=== PATIENT | male | born 1955 | race Caucasian/White ===

== ENCOUNTER 2024-03-23 10:17 | Outpatient (REF) | payer MEDICARE, SELFPAY ==
[2024-03-23 14:27] LABS: MANUAL DIFF FLAG NO
[2024-03-23 14:34] LABS: Basophils Percent Auto 0.8 % (0-2); Eosinophils Absolute Auto 0.1 X10*3/uL (0.0-0.4); Eosinophils Percent Auto 1.6 % (0-4); Imm Gran Abs Auto 0.01 X10*3/uL (0.00-0.03); Imm Gran Pct Auto 0.2 % (0.0-0.4); Lymphocytes Absolute Auto 1.2 X10*3/uL (1.2-4.9); Lymphocytes Percent Auto 23.3 % (20-40); Mean Corpuscular HGB Conc 34.8 g/dl (31.0-36.0); Mean Corpuscular Hemoglobin 33.5 pg (27.0-33.0); Mean Corpuscular Volume 96.4 fL (80.0-98.0); Mean Platelet Volume 11.1 fL (9.4-12.4); Monocytes Absolute Auto 0.5 X10*3/uL (0.1-1.2); Neutrophils Absolute Auto 3.2 x10*3/uL (2.0-8.3); Neutrophils Percent Auto 65.1 % (45-73); Platelet Count 174 X10*3/uL (160-400); Red Blood Count 4.77 X10*6/uL (4.60-5.80); Red Cell Distribution Width 12.3 % (11.0-16.0)
[2024-03-23 14:54] LABS: Alanine Aminotransferase 18 U/L (0-40); Alkaline Phosphatase 65 U/L (39-117); Anion Gap 12 (12-20); Aspartate Amino Transferase 18 U/L (5-37); Bilirubin Total 0.6 mg/dL (0.0-1.0); Blood Urea Nitrogen 19 mg/dL (9-16); Carbon Dioxide 25 mmol/L (22-29); Chloride 106 mmol/L (96-108); Cholesterol 211 mg/dL (<200); Estimated Glomerular Filt Rate > 60; Glucose Random 119 mg/dL (60-115); HDL Cholesterol 51 mg/dL (>40); LDL Cholesterol Calculated 124 mg/dL (<100); Potassium 3.5 mmol/L (3.3-5.1); Sodium 139 mmol/L (135-145); Triglycerides 180 mg/dL (<150)
[2024-03-23 15:09] LABS: TSH reflex Free T4 0.64 uIU/mL (0.32-4.0)
[2024-03-23 15:13] LABS: Prostate Specific Antigen 1.33 ng/mL (<0.05-4.0)
[2024-03-23 15:45] LABS: Estimated Average Glucose 100 mg/dL; Hemoglobin A1c % 5.1 % (<6.0)
== END 2024-03-23 10:18 | disposition home or self-care (01) ==
LOC: HO.WFDLDS 10:17
PROVIDERS: Visit Provider Internal Medicine
DX: E78.5 Hyperlipidemia, unspecified (principal); I10 Essential (primary) hypertension; R35.89 Other polyuria; Z13.0 Encounter for screening for diseases of the blood and blood-forming organs and certain disorders involving the immune mechanism; Z12.5 Encounter for screening for malignant neoplasm of prostate
CPT/HCPCS: 36415; 80053; 80061; 83036; 84153; 84443; 85025

== ENCOUNTER 2024-07-20 08:53 | Outpatient (AMB) | payer MEDICARE, SELFPAY ==
--- NOTE | 2024-07-20 09:11 | A.OFFPC_ITS ---
Vital Signs 07/20/24 09:18 Weight 186 lb 6 oz BP 122/60 Blood Pressure Location Rt brachial Position Sitting Respiration 14 Pulse 73 Pulse Source Pulse Oximeter Pulse Oximetry (%) 98 Oxygen Delivery Method Room Air Intake Visit Reasons: NPV Intake Note: New patient visit Allergies No Known Allergies Allergy (Verified 07/20/24 09:14) Tobacco use date assessed: 07/20/24 Fall risk assessment: No Falls in past year Last assessed Fall Risk: 07/20/24 Dental Screening Dental Screen Date: 07/20/24 Did you have a dental visit in the last 12 months?: Yes Did you have a dental problem in the last 6 months where you did not have access to dental care?: No Was dental information given to patient?: Patient has dentist HPI HPI Comments History of Present Illness Details The patient is a 68 year old male with pmh htn, hld, bph, knee pain, IFG presenting for follow up CV: On losartan hctz 100/12.5. Denies chest pain, shortness of breath. Saw cardiology-stress test was normal. May need new referral BPH: on hytrin and proscar-feels interval worsening ini symptoms. Follows with urology-needs new referral. Had previous reassuring w/up for hematuria. Fatigue: +EDWARD. ?cpap MSK: Foot, knee pain. Was seeing [facility]-no longer taking his insurance. Sees [facility] for knee pain-referred for shoulder and fooy there Had colonoscopy 05/2022-repeat 5 year recommended. ROS CONSTITUTIONAL: Denies weight loss, fever and chills. HEENT: Denies changes in vision and hearing. RESPIRATORY: Denies SOB and cough. CV: Denies palpitations and CP GI: Denies abdominal pain, nausea, vomiting and diarrhea. : Denies dysuria and urinary frequency. MSK: Denies new myalgia and joint pain. SKIN: Denies rash and pruritus. NEUROLOGICAL: Denies headache PSYCHIATRIC: Denies recent changes in mood. PHYSICAL EXAM: GENERAL: Alert and oriented x 3. NAD EYES: EOMI. Anicteric. HENT: Moist mucous membranes. No scleral icterus. No cervical lymphadenopathy. LUNGS: Clear to auscultation bilaterally. CARDIOVASCULAR: Regular rate and rhythm. No murmur. No JVD. ABDOMEN: Soft, non-tender +bs EXTREMITIES: No edema. Non-tender. SKIN: No rashes or lesions. Warm. NEUROLOGIC: No focal neurological deficits. CN II-XII grossly intact PSYCHIATRIC: Cooperative. Appropriate mood and affect [facility] Medical History (Updated 07/22/24 @ 09:46 by Nayeli Caro MD) Serrated polyp of colon Persistent cough Recurrent hernia Pain in left foot Pain in right foot Multiple lipomas Obesity, Class II, BMI 35-39.9 Bilateral shoulder pain Fatigue Acquired hallux rigidus Bilateral knee pain Surgical History (Updated 07/20/24 @ 09:29 by Zakia Dominguez [facility]) History of arthroscopic knee surgery Hx of partial adrenalectomy Hx of colonoscopy Family History (Updated 07/20/24 @ 09:31 by Zakia Dominguez CMA) Mother Degeneration of cornea of both eyes Father Prostate cancer Maternal Grandfather H/O ETOH abuse Paternal Grandmother Skin cancer Other Substance abuse Social History (Updated 07/20/24 @ 09:29 by Zakia Dominguez CMA) Housing: House Patient Tobacco Use Status: Never used Tobacco e-Cigarette/Vaping Use: Never Used Second Hand Smoke Exposure: No service: No Current occupational status: retired Cognitive needs: No Hearing needs: Yes (hearing loss) Vision needs: No Questionnaire PHQ-9 Over the last 2 weeks, how often have you been bothered by any of the following problems? 1. Little interest or pleasure in doing things: not at all 2. Feeling down, depressed, or hopeless: not at all 3. Trouble falling or staying asleep, or sleeping too much: not at all 4. Feeling tired or having little energy: several days 5. Poor appetite or overeating: not at all 6. Feeling bad about yourself - or that you are a failure or have let yourself or your family down: not at all 7. Trouble concentrating on things, such as reading the newspaper or watching television: not at all 8. Moving or speaking so slowly that other people could have noticed. Or the opposite - being so fidgety or restless that you have been moving around a lot more than usual: not at all 9. Thoughts that you would be better off or of hurting yourself in some way: not at all Total score: 1 Depression Screening Interpretation: Negative Depression Screening Done: Yes [id number] - PHQ-9 Billing: Yes Source: Developed by Angelo Elliset B.W. Paras, aVrinder Santoro and colleagues, with an educational madeline from [employer]. Thrive Questionnaire Date Thrive assessed: 07/09/24 I am a: Patient What is your living situation today?: I have a steady place to live Within the past 12 months, did the food you bought not last and you didn't have the money to get more?: Never true Within the past 12 months, did you worry whether your food would run out before you got money to buy more?: Never true Do you have trouble paying for medicines?: No Do you have trouble getting transportation to medical appointments?: No Do you have trouble paying your heating and electricity bill?: No Do you have trouble taking care of your child, family member or friend?: No Do you have trouble with day-to-day activities such as bathing, preparing meals, shopping, managing finances, etc.?: No Are you currently unemployed and looking for a job?: No Are you interested in more education?: No Please select the resources that you would like help with: None Currently or been in a relationship where the following occur: No concerns reported THRIVE Score: 0 Physical exam (Primary Care) Vital Signs: Last Vital Signs Pulse 73 07/20/24 09:18 Resp 14 07/20/24 09:18 BP 122/60 07/20/24 09:18 Pulse Ox 98 07/20/24 09:18 Oxygen Delivery Method Room Air 07/20/24 09:18 Tobacco/Smoking Status: Tobacco use Status Tobacco use date assessed 07/20/24 07/20/24 09:13 Patient Tobacco Use Status Never used Tobacco 07/20/24 09:29 e-Cigarette/Vaping Use Never Used 07/20/24 09:29 PHQ-9: PHQ-9 Score PHQ-9: Total score 1 07/22/24 09:46 Depression Screening Interpretation: Negative Thrive Assessment: Date of Thrive Assessment Date Thrive assessed 07/09/24 07/20/24 09:13 Currently or been in a relationship where the following occur: No concerns reported Coding Level of Care Code Est Pt Level 4 (92767) Complex EM visit Add On G2211 Diagnoses Primary hypertension I10 Hypertension type: primary hypertension Mixed hyperlipidemia E78.2 Hyperlipidemia type: mixed hyperlipidemia Osteoarthritis M19.90 Osteoarthritis location: multiple joints Assessment & Plan Assessment & Plan (1) Hypertension: Code(s): I10 - Essential (primary) hypertension Category: Medical Qualifiers: Hypertension type: primary hypertension Qualified Code(s): I10 - Essential (primary) hypertension Plan: adequately controlled on current medication (2) Hyperlipidemia: Code(s): E78.5 - Hyperlipidemia, unspecified Category: Medical Qualifiers: Hyperlipidemia type: mixed hyperlipidemia Qualified Code(s): E78.2 - Mixed hyperlipidemia Plan: continue current medications (3) Osteoarthritis: Code(s): M19.90 - Unspecified osteoarthritis, unspecified site Category: Medical Qualifiers: Osteoarthritis location: multiple joints Plan: stable. Has seen [facility] Orders: Orders Complete Blood Count Auto Diff 07/20/24 E78.5 - Hyperlipidemia, unspecified, I10 - Essential (primary) hypertension, N40.0 - Benign prostatic hyperplasia without lower urinary tract symptoms, R35.1 - Nocturia Comprehensive Met. Panel 07/20/24 E78.5 - Hyperlipidemia, unspecified, I10 - Essential (primary) hypertension, N40.0 - Benign prostatic hyperplasia without lower urinary tract symptoms, R35.1 - Nocturia Lipid Panel 07/20/24 E78.5 - Hyperlipidemia, unspecified, I10 - Essential (primary) hypertension, N40.0 - Benign prostatic hyperplasia without lower urinary tract symptoms, R35.1 - Nocturia Prostate Specific Antigen 07/20/24 E78.5 - Hyperlipidemia, unspecified, I10 - Essential (primary) hypertension, N40.0 - Benign prostatic hyperplasia without lower urinary tract symptoms, R35.1 - Nocturia TSH reflex Free T4 07/20/24 E78.5 - Hyperlipidemia, unspecified, I10 - Essential (primary) hypertension Hemoglobin A1c 07/20/24 E78.5 - Hyperlipidemia, unspecified, I10 - Essential (primary) hypertension Referrals Cardiology Referral R07.9 - Chest pain, unspecified Urology Referral N40.0 - Benign prostatic hyperplasia without lower urinary tract symptoms, R35.1 - Nocturia
[2024-07-20 09:18] VITALS: BP 122/60; PULSE 73; RESP 14; O2SAT 98
== END 2024-07-20 11:53 | disposition home or self-care (01) ==
LOC: HO.HMCFM 08:54
PROVIDERS: PCP Internal Medicine; Visit Provider Internal Medicine
DX: I10 Essential (primary) hypertension (principal); E78.2 Mixed hyperlipidemia; M19.90 Unspecified osteoarthritis, unspecified site

== ENCOUNTER → 2024-07-20 08:53 | Outpatient (BNVA) | payer MEDICARE, SELFPAY | PROVIDERS: PCP Internal Medicine; Visit Provider Internal Medicine | DX: I10 Essential (primary) hypertension (principal); E78.2 Mixed hyperlipidemia; M19.90 Unspecified osteoarthritis, unspecified site | CPT/HCPCS: 99212 ==

== ENCOUNTER 2024-08-13 14:58 | Outpatient (AMB) | payer MEDICARE, SELFPAY ==
--- NOTE | 2024-08-13 15:03 | A.OFFPC_ITS ---
Vital Signs 08/13/24 15:09 Weight 182 lb 8 oz BP 124/76 Blood Pressure Location Lt brachial Position Sitting Pulse 71 Pulse Source Pulse Oximeter Pulse Oximetry (%) 95 Oxygen Delivery Method Room Air Intake Visit Reasons: [facility] tmc /fu Stress test Intake Note: Hospital follow up [employer] Required: No Allergies No Known Allergies Allergy (Verified 08/13/24 15:09) Tobacco use date assessed: 07/20/24 Dental Screening Dental Screen Date: 07/20/24 HPI HPI Comments History of Present Illness Details The patient is a 68 year old male with pmh htn, hld, bph, knee pain, IFG presenting for hospital follow up Patient presented to the [facility] ER on 08/11/2024. Presented with concerns intermittent left chest pain. It had been on and off for the past couple of weeks. Worse at the end of the day, with exertion. Noted intermittent diaphoresis generally at night. His blood pressure was mildly elevated at 165/88. Stress test performed with some abnormal septal movement, no evidence of ischemia. Did have LBBB. Has follow up scheduled with cardiology on Aug 27 CV: On losartan hctz 100/12.5. Started statin and ASA. Continue chronic intermit tent shortness of breath BPH: on hytrin and proscar-feels interval worsening ini symptoms. Follows with urology-needs new referral. Had previous reassuring w/up for hematuria. Fatigue: +EDWARD. ?cpap MSK: Foot, knee pain. Was seeing [facility]-no longer taking his insurance. Sees [facility] for knee pain-referred for shoulder and fooy there Had colonoscopy 05/2022-repeat 5 year recommended. ROS see HPI PHYSICAL EXAM: GENERAL: Alert and oriented x 3. NAD EYES: EOMI. Anicteric. HENT: Moist mucous membranes. No scleral icterus. No cervical lymphadenopathy. LUNGS: Clear to auscultation bilaterally. CARDIOVASCULAR: Regular rate and rhythm. No murmur. No JVD. ABDOMEN: Soft, non-tender +bs EXTREMITIES: No edema. Non-tender. SKIN: No rashes or lesions. Warm. NEUROLOGIC: No focal neurological deficits. CN II-XII grossly intact PSYCHIATRIC: Cooperative. Appropriate mood and affect [facility] Medical History Serrated polyp of colon Persistent cough Recurrent hernia Pain in left foot Pain in right foot Multiple lipomas Obesity, Class II, BMI 35-39.9 Bilateral shoulder pain Fatigue Acquired hallux rigidus Bilateral knee pain Surgical History History of arthroscopic knee surgery Hx of partial adrenalectomy Hx of colonoscopy Family History Mother Degeneration of cornea of both eyes Father Prostate cancer Maternal Grandfather H/O ETOH abuse Paternal Grandmother Skin cancer Other Substance abuse Social History Housing: House Patient Tobacco Use Status: Never used Tobacco e-Cigarette/Vaping Use: Never Used Second Hand Smoke Exposure: No service: No Current occupational status: retired Cognitive needs: No Hearing needs: Yes (hearing loss) Vision needs: No Questionnaire Thrive Questionnaire Date Thrive assessed: 07/09/24 I am a: Patient What is your living situation today?: I have a steady place to live Within the past 12 months, did the food you bought not last and you didn't have the money to get more?: Never true Within the past 12 months, did you worry whether your food would run out before you got money to buy more?: Never true Do you have trouble paying for medicines?: No Do you have trouble getting transportation to medical appointments?: No Do you have trouble paying your heating and electricity bill?: No Do you have trouble taking care of your child, family member or friend?: No Do you have trouble with day-to-day activities such as bathing, preparing meals, shopping, managing finances, etc.?: No Are you currently unemployed and looking for a job?: No Are you interested in more education?: No Please select the resources that you would like help with: None Currently or been in a relationship where the following occur: No concerns reported THRIVE Score: 0 Physical exam (Primary Care) Vital Signs: Last Vital Signs Pulse 71 08/13/24 15:09 BP 124/76 08/13/24 15:09 Pulse Ox 95 08/13/24 15:09 Oxygen Delivery Method Room Air 08/13/24 15:09 Tobacco/Smoking Status: Tobacco use Status Tobacco use date assessed 07/20/24 08/13/24 15:04 Patient Tobacco Use Status Never used Tobacco 08/13/24 15:04 e-Cigarette/Vaping Use Never Used 08/13/24 15:04 Thrive Assessment: Date of Thrive Assessment Date Thrive assessed 07/09/24 08/13/24 15:04 Currently or been in a relationship where the following occur: No concerns reported Coding Level of Care Code TCM Mod MDM <= 14 Days Diagnoses Hospital discharge follow-up Z09 Shortness of breath R06.02 Assessment & Plan Assessment & Plan (1) Hospital discharge follow-up: Code(s): Z09 - Encounter for follow-up examination after completed treatment for conditions other than malignant neoplasm Category: Medical Plan: Hospital discharge follow up Medications reconciled Follow up with cardiology is scheduled (2) Shortness of breath: Code(s): R06.02 - Shortness of breath Category: Medical Plan: referral to pulmonary cardiac follow up in placed Orders: Referrals Pulmonology Referral R06.02 - Shortness of breath, Z09 - Encounter for follow- up examination after completed treatment for conditions other than malignant neoplasm Urology Referral N40.0 - Benign prostatic hyperplasia without lower urinary tract symptoms, R10.30 - Lower abdominal pain, unspecified
[2024-08-13 15:09] VITALS: BP 124/76; PULSE 71; O2SAT 95
== END 2024-08-13 16:39 | disposition home or self-care (01) ==
PROVIDERS: PCP Internal Medicine; Visit Provider Internal Medicine
DX: R06.02 Shortness of breath (principal); Z09 Encounter for follow-up examination after completed treatment for conditions other than malignant neoplasm

== ENCOUNTER → 2024-08-13 14:58 | Outpatient (BNVA) | payer MEDICARE, SELFPAY | PROVIDERS: PCP Internal Medicine; Visit Provider Internal Medicine | DX: Z09 Encounter for follow-up examination after completed treatment for conditions other than malignant neoplasm (principal); R06.02 Shortness of breath | CPT/HCPCS: 99212 ==

== ENCOUNTER 2024-10-18 07:37 | Outpatient (AMB) | payer MEDICARE, SELFPAY ==
--- OUTSIDE RECORDS SUMMARY | 2024-10-18 07:40 | XMS_ITS | Patient Health Record ---
Author Organization [facility] Address [address] [place] [address] Care Team Providers Care Lcac Radar Operator/Navigator Name Role Phone Nayeli Caro Primary Care Provider Unavailabl e Allergies No Known Allergies Reason For Referral No Information Medications Medication SIG (Take, Route, Frequency, Duration) Notes Start Date End Date Status Multivitamin - 1 tablet Orally Once a day Active Finasteride 5 MG 1 tablet Orally Once a day Active Sildenafil Citrate 100 MG 1 tablet as ne eded Orally Once a day Active Terazosin HCl 10 MG 1 capsule at bedtime Orally Once a day Active hydroCHLOROthiazide 25 MG 1 tablet in th e morning Orally Once a day Active Viagra 100 MG 1 tablet as needed Orally Once a day Active Hyzaar 100-12.5 MG 1 tablet Orally Once a day Not-Taking Aspirin 81 81 MG 1 tablet Orally Once a day Active Problems Problem Type SNOMED Code ICD Code Onset Dates Problem Status W/U Status Risk Notes Problem [id number] Hallux rigidus of left foot (M20.22) Active confirmed Problem [id number] Hallux rigidus of right foot (M20.21) Active confirmed Plan Of Treatment Pending Test Test Name Order Date YULISSA w/Reflex if Positive 10/12/2021 DRAIN/INJECT, SMALL JOINT/BURSA 10/12/19 22 Insurance Providers Payer Name Payer Address Payer Phone Subscriber Number Group Number Insured Name Patient Relationship to Insured Coverage Start Date Coverage End Date [facility] [address] [place] [phone] [id number] 1 Keith Navarro Self - patient is the insured Medications Administered Medication Instructions Date of Administration Dosage Notes Dexamethasone 10/12/2021 4 mg Medical (General) History Medical History History ICD Code Multiple joint arthritic changes Hypercholesterolemia Hypertension Erectile dysfunction History of benign adrenal mass Lumbar L5, S1 arthritic changes Surgical History Surgery Date(Month/Year) Arthroscopic knee surgery multiple Resection of benign adrenal mass Skin biopsy Excision of lipoma Hospitalization History Reason Date(Month/Year) Resection of Adrenal mass
--- NOTE | 2024-10-18 08:12 | A.OFFVIS_ITS ---
Intake Visit Reasons: BPH Intake Note: New Patient presents for initial visit for BPH and urinary urgency Urology Medications: finasteride-tadalafil, sildenafil, and terazosin Blood Thinner: aspirin PVR: 14ml's Independent Jeweler Required: No Accompanied by: Self / Same As Patient Allergies No Known Allergies Allergy (Verified 10/18/24 09:03) Medication List - Last Reconciled 10/18/24 by DANY Montero-MORAIMA aspirin 81 mg PO DAILY finasteride-tadalafil 5-5 mg 1 cap PO DAILY hydroxyzine HCl 10 mg PO BEDTIME losartan-hydrochlorothiazide 100-12.5 mg 1 tab PO DAILY multivitamin 1 tab PO DAILY sildenafil 100 mg PO DAILY PRN terazosin 10 mg PO DAILY HPI Comments Details: Keith is a very pleasant 68-year-old male patient of Dr. Nitin Hendrickson. He has a past medical history of hypertension, BPH, obesity, fatigue, recurrent hernias, persistent cough, and multiple lipomas. He presents to the office today as a new patient for ongoing lower urinary tract symptoms he has been experiencing as well as right-sided testicular discomfort he experiences from time to time. In discussion with the patient today he reports previously following up with a urologist at [place] as well as [facility] Dr. Mcgowan. He reports compliance with finasteride and 10 mg of terazosin daily. He reports being on these medications for over 10 years and initially felt they were helpful in episodes of nocturia, urinary urgency, and urinary frequency he had been experiencing. However he feels lately he continues to experience urinary urgency, urinary frequency, and urinary hesitancy. In review of patient's chart it appears PSA 04/14 1.3. He also discusses having had a double hernia repair with Dr. Ochoa a few years ago and has since continue to experience right-sided testicular discomfort as well as intermittent perineal pain. In assessment of the patient today right testicle slightly retracted when compared to left testicle however positive cremaster on exam. Patient with right-sided epididymal head discomfort on palpation otherwise no abnormalities noted within the area. He reports pain/discomfort is noted with increased activity such as chopping wood. He otherwise denies incontinence, hematuria, dysuria, foul smelling urine, changes to urinary stream, flank pain, fever, and or chills. We discussed at length potential causes of scrotal discomfort as well as lower urinary tract symptoms patient was experiencing. We discussed obtaining imaging for further assessment evaluation. We also discussed further treatment options and risks and benefits of these treatment options. In office urinalysis results reviewed with the patient today. PVR 14 mL. He otherwise offers no other issues or concerns at this time. [facility] Medical History Serrated polyp of colon Persistent cough Recurrent hernia Pain in left foot Pain in right foot Multiple lipomas Obesity, Class II, BMI 35-39.9 Bilateral shoulder pain Fatigue Acquired hallux rigidus Bilateral knee pain Surgical History History of arthroscopic knee surgery Hx of partial adrenalectomy Hx of colonoscopy Family History Mother Degeneration of cornea of both eyes Father Prostate cancer Maternal Grandfather H/O ETOH abuse Paternal Grandmother Skin cancer Other Substance abuse Social History Housing: House Patient Tobacco Use Status: Never used Tobacco e-Cigarette/Vaping Use: Never Used Second Hand Smoke Exposure: No service: No Current occupational status: retired Cognitive needs: No Hearing needs: Yes (hearing loss) Vision needs: No Review of Systems Const All systems reviewed & are unremarkable except as noted in HPI and below Physical Exam Const General: cooperative, healthy appearing, comfortable, no acute distress, well developed, alert and awake Orientation/consciousness: patient oriented x3 Limitations: no limitations HEENT Head: Yes normal to inspection, Yes normocephalic and Yes atraumatic Ears: hearing grossly normal bilaterally Eyes General: appearance normal, both eyes and all related structures Neck Neck: Yes normal visual inspection and Yes trachea midline Chest Chest palpation & inspection: normal inspection of the chest Resp Effort & Inspection: normal respiratory effort and able to speak in complete sentences Cardio Rate: regular rate GI Inspection: Yes normal to inspection General: Yes no CVA tenderness Back/Spine/Pelvis Back: no CVA tenderness Skin General skin exam: no rashes or lesions noted Neuro General: patient oriented x3 Extrem General: Yes normal to inspection Psych Appearance: grossly normal and well kempt Mental Status: mental status grossly normal Speech and movement: Normal speech and movement present and Clear speech present Affect: normal affect Attitude: cooperative Thought process: Normal thought process present Thought content: Normal thought content present Insight: Fair insight present (Psych) Judgement: Fair judgement present (Psych) Office Procedures Post Void Residual Post Residual Void Post Void Residual (PVR): 14 06194-[id number] Void Residual by ultrasound Results AMB Urinalysis, Automated UA Leukoctes 0 Tony/uL Last Edit by [employer] on 10/18/24 08:35 UA Nitrite Last Edit by [employer] on 10/18/24 08:35 UA Urobilinogen 0.2 mg/dL Last Edit by [employer] on 10/18/24 08:35 UA Protein 15 mg/dL Last Edit by [employer] on 10/18/24 08:35 UA pH 5.5 Last Edit by [employer] on 10/18/24 08:35 UA Blood 0 Arian/uL Last Edit by [employer] on 10/18/24 08:35 UA Specific [place] 1.020 Last Edit by [employer] on 10/18/24 08:35 UA Ketone Last Edit by [employer] on 10/18/24 08:35 UA Bilirubin 0 mg/dL Last Edit by [employer] on 10/18/24 08:35 UA Glucose 0 mg/dL Last Edit by [employer] on 10/18/24 08:35 Results Reviewed Results Reviewed: Laboratory Last Values Urine pH (Auto) 5.5 10/18/24 08:34 Specific [place] (Auto) 1.020 10/18/24 08:34 Urine Protein (Auto) 15 mg/dL 10/18/24 08:34 Glucose (UA)(Auto) 0 mg/dL 10/18/24 08:34 Urine Blood (Auto) 0 Arian/uL 10/18/24 08:34 Urine Bilirubin (Auto) 0 mg/dL 10/18/24 08:34 Urine Urobilinogen (Auto) 0.2 mg/dL 10/18/24 08:34 Leukocyte Esterase (Auto) 0 Tony/uL 10/18/24 08:34 Assessment & Plan Assessment & Plan (1) Testicular pain: Code(s): N50.819 - Testicular pain, unspecified Category: Medical (2) Urinary urgency: Code(s): R39.15 - Urgency of urination Category: Medical (3) BPH (benign prostatic hyperplasia): Code(s): N40.0 - Benign prostatic hyperplasia without lower urinary tract symptoms Category: Medical Plan In office urinalysis results reviewed with the patient today; as noted above. PVR 14 mL. We discussed at length potential causes of scrotal discomfort as well as lower urinary tract symptoms patient was experiencing. Discussed bladder triggers/irritants. Discussed obtaining retroperitoneal ultrasound and scrotal ultrasound for further assessment evaluation. We discussed at length potential causes of urological issues/concerns as well as further treatment options and risks and benefits of these treatment options. We discussed potential for near future in office cystoscopy for further assessment evaluation. Continue terazosin as well as finasteride however we discussed taking finasteride 3 times per week. Follow-up in 1-3 months with imaging and labs to be completed prior; or sooner with any issues, concerns, and or questions. Orders: Orders AMB Urinalysis Automated Today Z13.9 - Encounter for screening, unspecified US scrotum Today N50.819 - Testicular pain, unspecified AMB Post Void Residual by ultrasound Today N40.0 - Benign prostatic hyperplasia without lower urinary tract symptoms US retroperitoneal comp Today R39.15 - Urgency of urination Prostate Specific Antigen Today N40.0 - Benign prostatic hyperplasia without lower urinary tract symptoms Patient Instructions: The patient had an opportunity to ask questions regarding the treatment plan. All questions were answered. Physical exam, labs, and imaging were discussed and reviewed in detail. As well as risks, benefits, and discussion of treatment choices. No major barriers to understanding were identified. The patient expressed understanding and agreement with the above treatment plan. The patient was made aware they should contact our office by phone for worsening of their current condition, the appearance of new symptoms, or with any questions or concerns. Compliance is encouraged with any medications and follow up testing that is ordered. It is a privilege to be allowed the opportunity to participate in? your urological care.? Again, if you have any questions or concerns If you have any questions or concerns please do not hesitate to contact me. The office is [phone]. This note is constructed using voice recognition software. While every effort has been made to ensure accuracy aircraft life support fitter errors may have been included. Yours sincerely, NORMA Montero Coding Level of Care Code New Pt Level 3 (48657) Diagnoses Testicular pain N50.819 Urinary urgency R39.15 BPH (benign prostatic hyperplasia) N40.0 CPT Codes Post Residual Void - PVR CPT Code: 12042-Cswl Void Residual by ultrasound ([id number])
== END 2024-10-18 09:05 | disposition home or self-care (01) ==
PROVIDERS: PCP Internal Medicine; Visit Provider Nurse Practitioner Family
DX: N50.819 Testicular pain, unspecified (principal); R39.15 Urgency of urination; N40.0 Benign prostatic hyperplasia without lower urinary tract symptoms; Z13.9 Encounter for screening, unspecified
CPT/HCPCS: 99203

== ENCOUNTER → 2024-10-18 07:37 | Outpatient (BNVA) | payer MEDICARE, SELFPAY | PROVIDERS: PCP Internal Medicine; Visit Provider Nurse Practitioner Family | DX: N40.0 Benign prostatic hyperplasia without lower urinary tract symptoms (principal); I10 Essential (primary) hypertension; N50.819 Testicular pain, unspecified; R39.15 Urgency of urination | CPT/HCPCS: 51798; 81003; 99202 ==

== ENCOUNTER 2024-10-25 08:26 | Outpatient (REF) | payer MEDICARE, SELFPAY ==
[2024-10-25 11:30] LABS: MANUAL DIFF FLAG NO
[2024-10-25 11:41] LABS: Basophils Percent Auto 0.7 % (0-2); Eosinophils Absolute Auto 0.1 X10*3/uL (0.0-0.4); Eosinophils Percent Auto 2.3 % (0-4); Hematocrit 43.5 % (42.0-52.0); Hemoglobin 15.3 g/dl (14.0-18.0); Imm Gran Abs Auto 0.02 X10*3/uL (0.00-0.03); Imm Gran Pct Auto 0.4 % (0.0-0.4); Lymphocytes Absolute Auto 1.2 X10*3/uL (1.2-4.9); Lymphocytes Percent Auto 22.1 % (20-40); Mean Corpuscular HGB Conc 35.2 g/dl (31.0-36.0); Mean Corpuscular Hemoglobin 32.9 pg (27.0-33.0); Mean Corpuscular Volume 93.5 fL (80.0-98.0); Mean Platelet Volume 11.1 fL (9.4-12.4); Monocytes Absolute Auto 0.4 X10*3/uL (0.1-1.2); Neutrophils Absolute Auto 3.8 x10*3/uL (2.0-8.3); Neutrophils Percent Auto 67.5 % (45-73); Platelet Count 189 X10*3/uL (160-400); Red Blood Count 4.65 X10*6/uL (4.60-5.80); Red Cell Distribution Width 12.2 % (11.0-16.0); White Blood Count 5.6 X10*3/uL (4.8-10.8)
[2024-10-25 12:06] LABS: Estimated Average Glucose 100 mg/dL; Hemoglobin A1C 130.4939 umol/L; Hemoglobin A1c % 5.1 % (<6.0); Total Hemoglobin (HGBA1C) 4020.6373 umol/L
[2024-10-25 12:22] LABS: Alanine Aminotransferase 25 U/L (0-40); Albumin Level 3.9 g/dL (3.5-5.0); Alkaline Phosphatase 62 U/L (39-117); Anion Gap 11 (12-20); Aspartate Amino Transferase 22 U/L (5-37); Bilirubin Total 0.7 mg/dL (0.0-1.0); Blood Urea Nitrogen 17 mg/dL (9-16); Calcium 8.8 mg/dL (8.4-10.2); Carbon Dioxide 27 mmol/L (22-29); Chloride 107 mmol/L (96-108); Cholesterol 226 mg/dL (<200); Estimated Glomerular Filt Rate > 60; Glucose Random 107 mg/dL (60-115); HDL Cholesterol 49 mg/dL (>40); LDL Cholesterol Calculated 151 mg/dL (<100); Potassium 3.5 mmol/L (3.3-5.1); Sodium 141 mmol/L (135-145); Total Protein 6.9 g/dL (6.5-8.0); Triglycerides 131 mg/dL (<150)
[2024-10-25 12:31] LABS: Prostate Specific Antigen 0.83 ng/mL (<0.05-4.0)
[2024-10-25 12:40] LABS: TSH reflex Free T4 1.07 uIU/mL (0.32-4.0)
== END 2024-10-25 08:27 | disposition home or self-care (01) ==
LOC: HO.WFDLDS 08:26
PROVIDERS: Referring Provider Nurse Practitioner Family; Visit Provider Internal Medicine
DX: N40.0 Benign prostatic hyperplasia without lower urinary tract symptoms (principal); R35.1 Nocturia; I10 Essential (primary) hypertension; E78.5 Hyperlipidemia, unspecified; Z12.5 Encounter for screening for malignant neoplasm of prostate; Z13.1 Encounter for screening for diabetes mellitus
CPT/HCPCS: 36415; 80053; 80061; 83036; 84153; 84443; 85025

== ENCOUNTER 2024-11-26 14:32 | Outpatient (REF) | payer MEDICARE, SELFPAY ==
--- NOTE | ~2024-11-26 | US_ITS ---
CLINICAL HISTORY: N50.819 - Testicular pain, unspecified US SCROTUM WITH DOPPLER Comparison: None Findings: Right testicle measures 4.9 x 2.2 x 3.6 cm. Homogeneous echotexture with no measurable mass lesion. There are several tunica albuginea cysts measuring 3 mm. Left testicle measures 4.5 x 1.8 x 3.5 cm. Homogeneous echotexture with no measurable mass lesion. There are several microliths. Normal color flow and arterial/venous spectral tracing of both testicles. The right testicular appendix measures 4 x 6 x 4 mm. Left testicular appendix measures 7 x 4 x 7 mm. 7 x 5 x 5 mm right epididymal head cyst otherwise unremarkable epididymides. Large left-sided varicoceles. Trace physiologic bilateral hydroceles. IMPRESSION: 1. No acute testicular torsion. 2. No evidence for acute epididymo-orchitis. 3. Large left-sided varicoceles. 4. Small right epididymal head cyst. 5. No suspicious mass or abnormal fluid collection. This document has been electronically signed by: Jennifer Vasquez DO on 11/29/2024 13:14:52
--- NOTE | ~2024-11-26 | US_ITS ---
CLINICAL HISTORY: R39.15 - Urgency of urination US RENAL Comparison: None Findings: The right kidney measures 10.1 cm in length. No hydronephrosis or large shadowing calculus. There are multiple cysts, largest 3.6 cm. The left kidney measures 10.8 cm in length. No hydronephrosis or large shadowing calculus. There are multiple cysts, largest 1.6 cm. Urinary bladder is unremarkable. Prevoid volume 273 mL. Postvoid volume 147 mL. Bilateral ureteral jets are visualized. The prostate is heterogeneous and irregular in configuration measuring 3.5 x 3.7 x 3.5 cm. IMPRESSION: 1. No hydronephrosis. 2. Multiple bilateral renal cysts. 3. Approximately 46% postvoid residual. 4. Irregular heterogeneous prostate with volume in the normal range. This document has been electronically signed by: Jennifer Vasquez DO on 11/29/2024 13:29:32
--- OUTSIDE RECORDS SUMMARY | 2024-11-26 16:13 | XMS_ITS | Patient Health Record ---
Author Organization [facility] Address [address] [place] [address] Care Team Providers Care Assembler Hydraulic Backhoe Name Role Phone Nayeli Caro Primary Care [...] Problem Status W/U Status Risk Notes Problem [id number] Hallux rigidus of left foot (M20.22) Active confirmed Problem [id number] Hallux rigidus of right foot (M20.21) Active confirmed Plan Of Treatment Pending Test Test Name Order Date YULISSA w/Reflex if Positive 10/12/2021 DRAIN/INJECT, SMALL JOINT/BURSA 10/12/19 22 Insurance Providers Payer Name Payer Address Payer Phone Subscriber Number Group Number Insured Name Patient Relationship to Insured Coverage Start Date Coverage End Date [facility] [address] [place] [address] [phone] [id number] Keith Navarro Self - patient is [...]
== END 2024-11-26 14:33 | disposition home or self-care (01) ==
LOC: HO.US 14:32
PROVIDERS: PCP Internal Medicine; Visit Provider Nurse Practitioner Family
DX: R39.15 Urgency of urination (principal); N50.819 Testicular pain, unspecified
CPT/HCPCS: 76770; 76870

== ENCOUNTER → 2024-11-26 14:35 | Outpatient (BNV) | payer MEDICARE, SELFPAY | PROVIDERS: PCP Internal Medicine; Visit Provider Radiology Diagnostic Radiology | DX: N50.3 Cyst of epididymis (principal); N28.1 Cyst of kidney, acquired | CPT/HCPCS: 76770; 76870 ==

== ENCOUNTER 2025-01-24 07:44 | Outpatient (AMB) | payer MEDICARE, SELFPAY ==
--- NOTE | 2025-01-24 07:46 | A.OFFVIS_ITS ---
Intake Visit Reasons: 3m/US(set) Intake Note: Patient presents today for follow up on: BPH, urinary urgency, and testicular pain Urology Medications: terazosin, finasteride (not currently taking needs refills) Blood Thinner: aspirin PVR: 0ml's Net Sorter Required: No Accompanied by: Self / Same As Patient Allergies No Known Allergies Allergy (Verified 01/24/25 21:09) Medication List - Last Reconciled 01/24/25 by DANY Montero- aspirin 81 mg PO DAILY finasteride 5 mg PO DAILY hydroxyzine HCl 10 mg PO BEDTIME 90 days losartan-hydrochlorothiazide 100-12.5 mg 1 tab PO DAILY multivitamin 1 tab PO DAILY terazosin 10 mg PO DAILY 90 days HPI Comments Details: Keith is a very pleasant 69-year-old male patient of Dr. Jian Hendrickson. He has a past medical history of hypertension, BPH, obesity, fatigue, recurrent hernias, persistent cough, and multiple lipomas. He presents to the office today for follow-up of his ongoing lower urinary tract symptoms as well as intermittent scrotal discomfort he experiences. Patient with a previous history of following up at [facility] with . He denies having had any bothersome testicular or scrotal discomfort since his last office visit here. He reports compliance with finasteride and terazosin as ordered. Recent retroperitoneal ultrasound results reviewed with the patient today 12/14 bilat eral kidneys are normal in size. No hydronephrosis or renal calculi noted bilaterally. There are multiple bilateral renal cysts. Largest on the right 3.6 cm in largest on the left 1.6 cm. The urinary bladder is unremarkable. Irregular heterogeneous prostate with volume in normal range. Scrotal ultrasound 12/14 notes bilateral testicles with no acute testicular torsion. No evidence of acute epididymo-orchitis. Large left sided varicoceles. Small right epididymal head cysts. No suspicious masses or abnormal fluid collection per radiology report. He currently denies any bothersome urinary issues. He denies incontinence, hematuria, dysuria, foul smelling urine, changes to urinary stream, flank pain, fever, and or chills. In office urinalysis results reviewed with the patient today. PVR 0 mL. PSAs are as follows: PSA: 04/14 1.3, 11/16 0.8 He discusses [place]. We discussed continuation of surveillance monitoring. He otherwise offers no other issues or concerns at this time. [facility] Medical History Serrated polyp of colon Persistent cough Recurrent hernia Pain in left foot Pain in right foot Multiple lipomas Obesity, Class II, BMI 35-39.9 Bilateral shoulder pain Fatigue Acquired hallux rigidus Bilateral knee pain Surgical History History of arthroscopic knee surgery Hx of partial adrenalectomy Hx of colonoscopy Family History Mother Degeneration of cornea of both eyes Father Prostate cancer Maternal Grandfather H/O ETOH abuse Paternal Grandmother Skin cancer Other Substance abuse Social History Housing: House Alcohol intake: current Patient Tobacco Use Status: Never used Tobacco e-Cigarette/Vaping Use: Never Used Second Hand Smoke Exposure: No Substance Use Type: Marijuana service: No Current occupational status: retired Cognitive needs: No Hearing needs: Yes (hearing loss) Vision needs: No Review of Systems Const All systems reviewed & are unremarkable except as noted in HPI and below Physical Exam Const General: cooperative, healthy appearing, comfortable, no acute distress, well developed, alert and awake Orientation/consciousness: patient oriented x3 Limitations: no limitations HEENT Head: Yes normal to inspection, Yes normocephalic and Yes atraumatic Ears: hearing grossly normal bilaterally Eyes General: appearance normal, both eyes and all related structures Neck Neck: Yes normal visual inspection and Yes trachea midline Chest Chest palpation & inspection: normal inspection of the chest Resp Effort & Inspection: normal respiratory effort and able to speak in complete sentences Cardio Rate: regular rate GI Inspection: Yes normal to inspection General: Yes no CVA tenderness Back/Spine/Pelvis Back: no CVA tenderness Skin General skin exam: no rashes or lesions noted Neuro General: patient oriented x3 Extrem General: Yes normal to inspection Psych Appearance: grossly normal and well kempt Mental Status: mental status grossly normal Speech and movement: Normal speech and movement present and Clear speech present Affect: normal affect Attitude: cooperative Thought process: Normal thought process present Thought content: Normal thought content present Insight: Fair insight present (Psych) Judgement: Fair judgement present (Psych) Office Procedures Post Void Residual Post Residual Void Post Void Residual (PVR): 0 63061-Baax Void Residual by ultrasound Results AMB Urinalysis, Automated UA Leukoctes 0 Tony/uL Last Edit by [employer] on 01/24/25 08:07 UA Nitrite Last Edit by Tradeshiftaysha Or[employer] on 01/24/25 08:07 UA Urobilinogen 0.2 mg/dL Last Edit by [employer] on 01/24/25 08:07 UA Protein 0 mg/dL Last Edit by [employer] on 01/24/25 08:07 UA pH 6.0 Last Edit by Tradeshiftaysha OrantesCine[employer] on 01/24/25 08:07 UA Blood 0 Arian/uL Last Edit by [employer] on 01/24/25 08:07 UA Specific Fleming 1.030 Last Edit by [employer] on 01/24/25 08:07 UA Ketone Last Edit by [employer] on 01/24/25 08:07 UA Bilirubin 0 mg/dL Last Edit by [employer] on 01/24/25 08:07 UA Glucose 0 mg/dL Last Edit by [employer] on 01/24/25 08:07 Results Reviewed Results Reviewed: Laboratory Last Values Urine pH (Auto) 6.0 01/24/25 07:54 Specific Fleming (Auto) 1.030 01/24/25 07:54 Urine Protein (Auto) 0 mg/dL 01/24/25 07:54 Glucose (UA)(Auto) 0 mg/dL 01/24/25 07:54 Urine Blood (Auto) 0 Arian/uL 01/24/25 07:54 Urine Bilirubin (Auto) 0 mg/dL 01/24/25 07:54 Urine Urobilinogen (Auto) 0.2 mg/dL 01/24/25 07:54 Leukocyte Esterase (Auto) 0 Tony/uL 01/24/25 07:54 Date of Service: 11/26/24 Procedure(s): US retroperitoneal comp Findings: The right kidney measures 10.1 cm in length. No hydronephrosis or large shadowing calculus. There are multiple cysts, largest 3.6 cm. The left kidney measures 10.8 cm in length. No hydronephrosis or large shadowing calculus. There are multiple cysts, largest 1.6 cm. Urinary bladder is unremarkable. Prevoid volume 273 mL. Postvoid volume 147 mL. Bilateral ureteral jets are visualized. The prostate is heterogeneous and irregular in configuration measuring 3.5 x 3.7 x 3.5 cm. IMPRESSION: 1. No hydronephrosis. 2. Multiple bilateral renal cysts. 3. Approximately 46% postvoid residual. 4. Irregular heterogeneous prostate with volume in the normal range. Date of Service: 11/26/24 Procedure(s): US scrotum Findings: Right testicle measures 4.9 x 2.2 x 3.6 cm. Homogeneous echotexture with no measurable mass lesion. There are several tunica albuginea cysts measuring 3 mm. Left testicle measures 4.5 x 1.8 x 3.5 cm. Homogeneous echotexture with no measurable mass lesion. There are several microliths. Normal color flow and arterial/venous spectral tracing of both testicles. The right testicular appendix measures 4 x 6 x 4 mm. Left testicular appendix measures 7 x 4 x 7 mm. 7 x 5 x 5 mm right epididymal head cyst otherwise unremarkable epididymides. Large left-sided varicoceles. Trace physiologic bilateral hydroceles. IMPRESSION: 1. No acute testicular torsion. 2. No evidence for acute epididymo-orchitis. 3. Large left-sided varicoceles. 4. Small right epididymal head cyst. 5. No suspicious mass or abnormal fluid collection. Assessment & Plan Assessment & Plan (1) Epididymal cyst: Code(s): N50.3 - Cyst of epididymis Category: Medical (2) Varicocele: Code(s): I86.1 - Scrotal varices Category: Medical (3) Renal cyst: Code(s): N28.1 - Cyst of kidney, acquired Category: Medical (4) BPH (benign prostatic hyperplasia): Code(s): N40.0 - Benign prostatic hyperplasia without lower urinary tract symptoms Category: Medical Qualifiers: Lower urinary tract symptom presence: symptoms present Lower urinary tract symptom detail: unspecified Qualified Code(s): N40.1 - Benign prostatic hyperplasia with lower urinary tract symptoms Plan In office urinalysis results reviewed with the patient today; as noted above. PVR 0 mL. Continue finasteride Friday and terazosin as prescribed. Recent retroperitoneal ultrasound and scrotal ultrasound results reviewed with the patient today; as noted above. Recent PSA results reviewed with the patient today We discussed potential causes of varicoceles, epididymal cyst, and renal cysts; we discussed further interventions and risks and benefits of these interventions. All questions were answered Patient currently denies any bothersome urinary issues or concerns. He reports be happy with current voiding parameters. Will continue with surveillance monitoring. Will obtain renal ultrasound in 1 year Follow-up in 1 year with PSA and PVR; or sooner with any issues, concerns, and or questions. Orders: Orders AMB Urinalysis Automated Today Z13.9 - Encounter for screening, unspecified AMB Post Void Residual by ultrasound Today R39.15 - Urgency of urination US renal BI 1 Year N20.0 - Calculus of kidney Prostate Specific Antigen 1 Year N40.0 - Benign prostatic hyperplasia without lower urinary tract symptoms Patient Instructions: The patient had an opportunity to ask questions regarding the treatment plan. All questions were answered. Physical exam, labs, and imaging were discussed and reviewed in detail. As well as risks, benefits, and discussion of treatment choices. No major barriers to understanding were identified. The patient expressed understanding and agreement with the above treatment plan. The patient was made aware they should contact our office by phone for worsening of their current condition, the appearance of new symptoms, or with any questions or concerns. Compliance is encouraged with any medications and follow up testing that is ordered. It is a privilege to be allowed the opportunity to participate in? your urological care.? Again, if you have any questions or concerns If you have any questions or concerns please do not hesitate to contact me. The office is [phone]. This note is constructed using voice recognition software. While every effort has been made to ensure accuracy jowl trimmer errors may have been included. Yours sincerely, DANY Montero-MORAIMA Coding Level of Care Code Est Pt Level 3 (23746) Complex EM visit Add On G2211 Diagnoses Epididymal cyst N50.3 Varicocele I86.1 Renal cyst N28.1 Benign prostatic hyperplasia with lower urinary tract symptoms, symptom details unspecified N40.1 Lower urinary tract symptom presence: symptoms present Lower urinary tract symptom detail: unspecified CPT Codes Post Residual Void - PVR CPT Code: 63342-Slik Void Residual by ultrasound ([id number])
--- OUTSIDE RECORDS SUMMARY | 2025-01-24 07:47 | XMS_ITS | Data Portability ---
Author Organization [facility], [facility] Address [address] [place] [address] Care Team Providers Care Supervisor Stripping Name Role Phone SARA ALVAREZ Primary Care Provider [phone] Assessment Encounter Date Assessment Date Assessment LastModified by Organization Details LastModified Time 06/10/2024 06/10/2024 Chief Complaint: Bilateral shoulder subacromial impingement/bursiti s, bilateral shoulder osteoarthritis HPI: The patient is a 68-year-old otherwise healthy retired right-hand dominant male here today in follow-up regarding bilateral shoulder pain, left greater than right. He complains of greater than 10 years of episodic pain to both shoulders. He denies any injury or trauma. He complains of gradual onset aching pain. He had a cortisone injection performed back in 2009 which did help his symptoms. No prior shoulder surgeries. He also has nighttime symptoms. His pain better while lifting and reaching activity was to make his pain worse. I previously evaluated him on 08/30/2022. His history and exam are most consistent with bilateral shoulder subacromial impingement/bursiti s and I performed subacromial steroid injections to both shoulders with significant improvement in symptoms. I saw him again in February 2023 and November 2023 for both shoulders with repeat injections performed similarly with good relief of symptoms. He also had an MRI of the left shoulder performed back in November 2023. He comes in today for reevaluation and discussion of treatment options. I independently reviewed the outside MRI of the left shoulder dated 11/24/2023. Supraspinatus and infraspinatus tendons intact with some insertional tendinosis of the supraspinatus. Moderate acromioclavicular joint arthrosis with acromial and clavicular spurring as well as cystic change and adjacent marrow edema. Degenerative tearing of the superior labrum. Diffuse chondral thinning in the glenohumeral joint including near full thickness chondral loss to the glenoid. Degenerative tearing of the anterior and posterior labrum noted. Flattening of the biceps tendon along with intrasubstance signal consistent with tendinopathy. Subscapularis intact with tendinosis noted. Teres minor intact. I reviewed previous Grashey, scapular outlet and axillary views of the bilateral shoulders were ordered, obtained and reviewed at [facility] from November 2023. No acute fractures or dislocations. Moderate glenohumeral joint space narrowing noted bilaterally, right worse than left. Slightly high riding humeral head on the left with concern for possible chronic rotator cuff tear pathology. Mild to moderate acromioclavicular joint arthrosis noted bilaterally. Type II acromion bilaterally. No os acromiale. He has a past medical history of hypertension. He takes losartan, hydrochlorothiazide , Terazosin, finasteride and baby aspirin. He has no allergies to medications. He denies tobacco use. He is and employed. No personal or family history of blood clots. Past medical, surgical, family and social history, and 12-point review of systems has been reviewed, updated and signed by me and are in the patient? s chart. Physical Examination: Height and weight as noted in chart. Constitutional: Patient pleasant, well appearing and in NAD. Mental status: Patient is alert and oriented to person, place and time. No short-term memory deficits. Psychiatric: Mood and affect are appropriate. Head: Normocephalic and atraumatic. Exterior inspection of the ears and nose was unremarkable. Hearing grossly intact. Eyes: Sclera are not blue. director housekeeping II-XII are grossly intact. Full extraocular motion. Neck: Supple with pain-free, appropriate ROM. No tracheal deviation. No obvious JVD. Respiratory: Non-labored breathing. Symmetric excursion. No audible wheezing or crackles. Skin: No rashes, lesions, wounds to the upper extremities. Normal turgor and coloration. Musculoskeletal: On examination of the bilateral shoulders, there are no effusions, erythema or ecchymosis. Active shoulder elevation to 165? ? ? bilaterally. External rotation 45? ? ? bilaterally. Internal rotation to the thoracolumbar junction. Negative belly press bilaterally. 5/5 strength in rotator cuff testing including abduction and external rotation. Positive impingement signs of both shoulders. No significant acromioclavicular joint tenderness. Positive biceps tenderness bilaterally. Procedure: Injection of Steroid and Anesthetic, Subacromial Space, right All reasonable risks and benefits of injection were discussed. Risks include bleeding, infection, non-relief of symptoms, recurrence of symptoms, allergic type reaction, scarring, fat atrophy, and hyperglycemia. After obtaining consent, the right posterior shoulder was prepped in sterile fashion using an alcohol swab. The skin was anesthetized with ethyl chloride spray, wiped again with alcohol, and an injection of 1cc of Kenalog 40 and 4cc? s of Lidocaine 1% was performed using a 22-gauge needle into the subacromial space. The medication flowed freely and the patient tolerated this procedure well. The patient was instructed to avoid strenuous activity following the injection for approximately 24 to 48 hours, and then a gradual return to normal activities is allowed. Procedure: Injection of Steroid and Anesthetic, Subacromial Space, left All reasonable risks and benefits of injection were discussed. Risks include bleeding, infection, non-relief of symptoms, recurrence of symptoms, allergic type reaction, scarring, fat atrophy, and hyperglycemia. After obtaining consent, the left posterior shoulder was prepped in sterile fashion using an alcohol swab. The skin was anesthetized with ethyl chloride spray, wiped again with alcohol, and an injection of 1cc of Kenalog 40 and 4cc? s of Lidocaine 1% was performed using a 22-gauge needle into the subacromial space. The medication flowed freely and the patient tolerated this procedure well. The patient was instructed to avoid strenuous activity following the injection for approximately 24 to 48 hours, and then a gradual return to normal activities is allowed. Impression and Plan: 68-year-old otherwise healthy male with a long-term history of recurrent bilateral shoulder pain and overall history, x-rays and examination consistent with symptomatic left shoulder subacromial impingement/bursiti s and biceps tendinopathy, bilateral shoulder osteoarthritis, and rotator cuff tendinosis. No full-thickness rotator cuff tear based on the left shoulder MRI from November 2023. I discussed options with him both operative and nonoperative. He does wish to continue conservative treatment and therefore I offered him repeat course of injections to both shoulders today that he tolerated very well. He may continue taking Tylenol and low-dose oral anti-inflammatory as needed. I previously provided a handout with home stretches and exercises and recommendations to perform these on a daily basis. I also recommended good lifting mechanics and avoidance of heavy overhead lifting or lifting away from his body when possible. Should he wish to discuss further treatment options in the future, I do recommend that he call back for another visit when convenient for him. All questions and concerns were addressed. Today's visit involved examining the patient, reviewing the history, reviewing the radiographic studies, counseling the patient regarding treatment options, and the administrative tasks including placing orders, preparing patient information and home handouts and preparing the visit note. This note was generated with [facility] speech recognition railroad conductor dictation software. Please excuse any errors that may have been overlooked during review of this note. Sometimes, these errors may affect the content or meaning of a given sentence. Please call for corrections. [email or web address] Not available 06/10/2024 12:49:34 Plan of Treatment Reminders Order Date Submit Date Provider Last Modified By Organization Details Last Modified Time Details Appointments NEW PROBLEM 2024 08:45A Chuck Frederick CNP Not available Not available Not available Lab None recorded . Referral None recorded . Procedures None recorded . Surgeries None recorded . Imaging None recorded . Medication Orders None recorded . Patient TargetsNo targets recorded. Patient InstructionsNo instructions recorded. Reason for Referral None Reported. Procedures Surgical History Date Name Laterality Status Provider Name and Address Organization Details Recorded Time 5 Knee Kenalog 40 1cc Injection, Bilateral completed Brigido Mock PA-C [address], [place], [address], [facility] 11/30/2024 16:33:49 4 Sports Shoulder Bilateral completed Azar Langston MD [address], [place], [address], [facility] 06/10/2024 12:49:43 4 Knee Kenalog 40 1cc Injection, Bilateral completed Brigido Mock PA-C [address], [place], [address], [facility] 06/05/2024 09:59:24 Imaging Results None recorded. Procedure Notes None recorded. Medical Equipment None Reported. Medications Name Sig Start Date Stop Date Status Note LastModified by Organization Details LastModified Time atorvastatin 40 mg tablet TAKE 1 TABLET BY MOUTH DAILY active Not Available Not Available No t Available sildenafil 100 mg tablet TAKE 1 TABLET BY MOUTH DAILY NEEDED 30 MINUTES TO 4 HOURS BEFORE SEXUAL ACTIVITY active Not Available Not Available No t Available ropinirole 0.25 mg tablet active Not Available Not Availab le Not Available pseudoephedrin e-guaifenesin ER 80-700 mg tablet,extende d release 1 PO Q4-6 HRS PRN PAIN 2006 active Statu s: 'Curr ent'; Not Available Not Available Not Available hydroxyzine HCl 10 mg tablet TAKE 1 TABLET AT BEDTIME ASNEEDED FOR ANXIETY/S LEEP active Not Available Not Available No t Available terazosin 10 mg capsule TAKE 1 CAPSULE DAILY active Not Available Not Available No t Available finasteride 5 mg tablet TAKE 1 TABLET DAILY active Not Available Not Available No t Available rosuvastatin 5 mg tablet TAKE 1 TABLET BY MOUTH DAILY active Not Available Not Available No t Available Vitals Date Recorded Body height Provider Name an d Address Organization Details Last Updated DateTime 06/05/2024 170.18 cm IDALIA DAVE [facility] 06/05/2024 08:26:58 Date Recorded Body height Body mass index (BMI) Body weight Provider Name and Address Organization Details Last Updated DateTime 06/10/2024 170.18 cm 29 kg/m2 50804.59 g Sienna Perales [facility] 06/10/2024 11:51:11 Date Recorded Body height Body mass index (BMI) Body weight Provider Name and Address Organization Details Last Updated DateTime 11/30/2024 170.18 cm 29 kg/m2 85350.59 g Brigido Mock PA-C [address], [place], [address], [facility] 11/30/2024 16:08:30 Social History None recorded. Functional Status None recorded. Mental Status None recorded. Family History Nothing Reported. Medical History Condition Response Cholesterol Y Past Encounters Encounter ID Performer Location Encounter Start Date Encounter Closed Date Diagnosis/Indication Diagnosis SNOMED-CT Code Diagnosis ICD10 Code Diagnosis Note [id number] CARIN Hager [address] [place] [address] 06/05/2024 08:13:28 06/28/2024 08:28:47 Bilateral osteoarthritis of knees 3218057441 06471 M17.0 [id number] MD [facility] [address] [place] [address] 06/10/2024 11:04:36 06/30/2024 12:13:02 Impingement syndrome of right shoulder region 7101184929 26252 M75.41 Impingemen t syndrome of left shoulder region 5540326155 16752 M75.42 [id number] [facility] [place] [address] [place] [address] 11/30/2024 16:01:19 12/16/2024 15:29:27 Primary gonarthrosis, bilateral 796496281 M17.0 Health Concerns Section Related Observation LastModified by Organization Detai ls LastModified Time None Recorded Concern Status LastModified by Organization Details LastModified Time None Recorded Advance Directives Directive None Recorded Payers Encounter Date Sequence Insurance Name Policy Number Policy Earl Covered Member ID Earl Member ID Guarantor Name 06/05/2024 1 [place] [employer] Keith Verdin [place] [id number] Keith Verdin [place] 06/05/2024 1 [place] [facility] [id number] Keith Verdin [place] [id number] Keith Verdin [place] 06/10/2024 1 [place] [employer] Keith Verdin [place] [id number] Keith S Ramon 06/10/2024 2 [place] [id number] Keith Verdin [place] [id number] Keith Verdin [place] 11/30/2024 1 [place] [employer] Keith Verdin [place] [id number] Keith S [place] 11/30/2024 2 [place] [id number] Keith S [place] [id number] Keith S Ramon Notes Date Note Type Note Provider Name and Address Organization Details Recorded Time 06/05/2024 text/html I am seeing the patient today under the supervision of Dr. Canales who was available but who did not see the patient. HPI:Patient presents today follow-up regarding their {{Left Right Bi-later al*}} knee. They have had difficulty up and down stairs sitting standing. Patient had previous cortisone injections approximately every 7 months ago. He had these injections done before he was going on vacation. These injections provided him with good relief up until recently. Problems ambulating. Jsrn-cnw-qjorpoq medications are helping somewhat but not significantly. Pain is not constant and comes and goes depending on his activity level. He would like to proceed with continued injection treatment at this point. Past family, medical, social history and review of systems has been reviewed, updated and is located in the patient? s chart. Examination:The patient is well appearing and in no apparent distress. Alert and oriented x3. Gait is symmetric. Examination of the {{Left Right Bi-later al*}} knee reveals no evidence of any edema, erythema, or warmth. No Deformity. Range of motion of the knee limited with mild discomfort at the end ranges. No effusion. Does have some tenderness to palpation about the medial hemijoint line. No tenderness to palpation about the lateral hemijoint line. Patellofemoral crepitus is noted. mild lateral ligamentous laxity. Negative Cecilia? s . Calf is supple and nontender. Neurovascularly intact distally. Impression:{{Left Rig ht Bi-lateral*}} Knee osteoarthritis Plan:We discussed the role of conservative management including medications, physical therapy, injection and bracing. At this point the patient was to proceed with injection. Please see procedure note. They will follow up with us as scheduled. Brigido Mock PA-C [address], [place], [address], [facility] 06/05/2024 09:59:39 11/30/2024 text/html I am seeing the patient today under the supervision of Dr. Pozo who was available but who did not see the patient. HPI:Patient presents today follow-up regarding their {{Left Right Bi-later al*}} knee. They have had difficulty up and down stairs sitting standing. Previous injections about 6-1/2 months ago which gave him good relief for about 5-1/2 months. Problems ambulating. Hzyw-aom-mcbwuct medications are helping somewhat but not significantly. Pain is constant aching sometimes sharp pain with giving out sensations. Past family, medical, social history and review of systems has been reviewed, updated and is located in the patient? s chart. Examination:The patient is well appearing and in no apparent distress. Alert and oriented x3. Gait is symmetric. Examination of the {{Left Right Bi-later al*}} knee reveals no evidence of any edema, erythema, or warmth. No Deformity. Range of motion of the knee limited with mild discomfort at the end ranges. Minimal effusion. Does have some tenderness to palpation about the medial hemijoint line. No tenderness to palpation about the lateral hemijoint line. Patellofemoral crepitus is noted. mild lateral ligamentous laxity. Negative Cecilia? s . Calf is supple and nontender. Neurovascularly intact distally. Impression:{{Left Rig ht Bi-lateral*}} Knee osteoarthritis Plan:We discussed the role of conservative management including medications, physical therapy, injection and bracing. At this point the patient was to proceed with injection. Please see procedure note. They will follow up with us as scheduled. Brigido Mock PA-C [address] [place], [place] [address] [address], [place], [address], [facility] 11/30/2024 16:34:04
--- OUTSIDE RECORDS SUMMARY | 2025-01-24 07:48 | XMS_ITS | Patient Health Record ---
Author Organization [facility] Address [address] [place] [address] Care Team Providers Care Director Of Strategic Alliances Name Role Phone Nayeli Caro Primary Care [...] Problem Status W/U Status Risk Notes Problem [id number] Hallux rigidus of left foot (M20.22) Active confirmed Problem [id number] Hallux rigidus of right foot (M20.21) Active confirmed Plan Of Treatment Pending Test Test Name Order Date YULISSA w/Reflex if Positive 10/12/2021 DRAIN/INJECT, SMALL JOINT/BURSA 10/12/19 22 Insurance Providers Payer Name Payer Address Payer Phone Subscriber Number Group Number Insured Name Patient Relationship to Insured Coverage Start Date Coverage End Date [facility] [address] [place] [phone] [id number] RamonKeith cole Self - patient is the insured Medications [...]
== END 2025-01-24 08:27 | disposition home or self-care (01) ==
LOC: HO.HUSH 07:44
PROVIDERS: PCP Internal Medicine; Visit Provider Nurse Practitioner Family
DX: N50.3 Cyst of epididymis (principal); I86.1 Scrotal varices; N28.1 Cyst of kidney, acquired; N40.1 Benign prostatic hyperplasia with lower urinary tract symptoms; Z13.9 Encounter for screening, unspecified
CPT/HCPCS: 99213; G2211

== ENCOUNTER → 2025-01-24 07:44 | Outpatient (BNVA) | payer MEDICARE, SELFPAY | PROVIDERS: PCP Internal Medicine; Visit Provider Nurse Practitioner Family | DX: I10 Essential (primary) hypertension (principal); E78.2 Mixed hyperlipidemia; N40.1 Benign prostatic hyperplasia with lower urinary tract symptoms; R39.15 Urgency of urination; G47.33 Obstructive sleep apnea (adult) (pediatric); Z79.899 Other long term (current) drug therapy; Z99.89 Dependence on other enabling machines and devices; N50.3 Cyst of epididymis; N28.1 Cyst of kidney, acquired; I86.1 Scrotal varices | CPT/HCPCS: 51798; 81003; 96127; 99212 ==

== ENCOUNTER 2025-01-24 13:34 | Outpatient (AMB) | payer MEDICARE, SELFPAY ==
--- NOTE | 2025-01-24 13:48 | MHC.PC.OV ---
Vital Signs 01/24/25 13:51 Height 5 ft 6 in Weight 180 lb 8 oz BMI 29.1 BP 132/72 Blood Pressure Location Rt brachial Position Sitting Respiration 14 Pulse 72 Pulse Source Pulse Oximeter Pulse Oximetry (%) 95 Oxygen Delivery Method Room Air Intake Visit Reasons: medication review Intake Note: Medication follow up Is Technician Required: No Allergies No Known Allergies Allergy (Verified 01/24/25 13:48) Tobacco use date assessed: 01/24/25 Fall risk assessment: No Falls in past year Last assessed Fall Risk: 01/24/25 Dental Screening Dental Screen Date: 01/24/25 Did you have a dental visit in the last 12 months?: Yes Did you have a dental problem in the last 6 months where you did not have access to dental care?: No Was dental information given to patient?: Patient has dentist HPI HPI Comments History of Present Illness Details The patient is a 68 year old male with pmh htn, hld, bph, knee pain, IFG presenting for hospital follow up CV: On losartan hctz 100/12.5, ASA. Blood pressure is well controlled. LBBB. Had ACS rule out in Jul 2024. Following with cardiology, Dr Ramirez. Had coronary CT without evidence blockage. BPH: on terasozin and finasteride MWF. Follows with urology, Dr Soto. Had previous reassuring w/up for hematuria. Fatigue: +EDWARD on cpap MSK: Foot, knee pain. Was seeing [facility]-no longer taking his insurance. Sees [facility] for knee pain-referred for shoulder and fooy there Had colonoscopy 05/2022-repeat 5 year recommended. ROS see HPI PHYSICAL EXAM: GENERAL: Alert and oriented x 3. NAD EYES: EOMI. Anicteric. HENT: Moist mucous membranes. No scleral icterus. No cervical lymphadenopathy. LUNGS: Clear to auscultation bilaterally. CARDIOVASCULAR: Regular rate and rhythm. No murmur. No JVD. ABDOMEN: Soft, non-tender +bs EXTREMITIES: No edema. Non-tender. SKIN: No rashes or lesions. Warm. NEUROLOGIC: No focal neurological deficits. CN II-XII grossly intact PSYCHIATRIC: Cooperative. Appropriate mood and affect [facility] Medical History Serrated polyp of colon Persistent cough Recurrent hernia Pain in left foot Pain in right foot Multiple lipomas Obesity, Class II, BMI 35-39.9 Bilateral shoulder pain Fatigue Acquired hallux rigidus Bilateral knee pain Surgical History History of arthroscopic knee surgery Hx of partial adrenalectomy Hx of colonoscopy Family History Mother Degeneration of cornea of both eyes Father Prostate cancer Maternal Grandfather H/O ETOH abuse Paternal Grandmother Skin cancer Other Substance abuse Social History Housing: House Alcohol intake: current Patient Tobacco Use Status: Never used Tobacco e-Cigarette/Vaping Use: Never Used Second Hand Smoke Exposure: No Substance Use Type: Marijuana service: No Current occupational status: retired Cognitive needs: No Hearing needs: Yes (hearing loss) Vision needs: No Questionnaire PHQ-9 Over the last 2 weeks, how often have you been bothered by any of the following problems? 1. Little interest or pleasure in doing things: not at all 2. Feeling down, depressed, or hopeless: not at all 3. Trouble falling or staying asleep, or sleeping too much: not at all 4. Feeling tired or having little energy: not at all 5. Poor appetite or overeating: not at all 6. Feeling bad about yourself - or that you are a failure or have let yourself or your family down: not at all 7. Trouble concentrating on things, such as reading the newspaper or watching television: not at all 8. Moving or speaking so slowly that other people could have noticed. Or the opposite - being so fidgety or restless that you have been moving around a lot more than usual: not at all 9. Thoughts that you would be better off or of hurting yourself in some way: not at all Total score: 0 Depression Screening Interpretation: Negative Depression Screening Done: Yes 44794 - PHQ-9 Billing: Yes Source: Developed by Drs. Pardeep Chester, Leesa Crain, Varinder Santoro and colleagues, with an educational madeline from [employer]. Thrive Questionnaire Date Thrive assessed: 01/17/25 I am a: Patient What is your living situation today?: I have a steady place to live Within the past 12 months, did the food you bought not last and you didn't have the money to get more?: Never true Within the past 12 months, did you worry whether your food would run out before you got money to buy more?: Never true Do you have trouble paying for medicines?: No Do you have trouble getting transportation to medical appointments?: No Do you have trouble paying your heating and electricity bill?: No Do you have trouble taking care of your child, family member or friend?: No Do you have trouble with day-to-day activities such as bathing, preparing meals, shopping, managing finances, etc.?: No Are you currently unemployed and looking for a job?: No Are you interested in more education?: No Please select the resources that you would like help with: None Currently or been in a relationship where the following occur: No concerns reported THRIVE Score: 0 AUDIT C Alcohol Use Questionnaire (AUDIT-C) 1. How often do you have a drink containing alcohol?: 2-3 times a week 2. How many drinks containing alcohol do you have on a typical day when you are drinking?: 1 or 2 3. How often do you have six or more drinks on one occasion?: Never Total Score: 3 KARMEN-7 AMB Questionnaire KARMEN-7 Date KARMEN - 7 assessed: 01/24/25 Feeling nervous, anxious, or on edge: 0 = Not at all Not being able to stop or control worryin = Not at all Worrying too much about different things: 0 = Not at all Trouble relaxin = Not at all Being so restless that it is hard to sit still: 0 = Not at all Becoming easily annoyed or irritable: 0 = Not at all Feeling afraid as if something awful might happen: 0 = Not at all Total KARMEN-7 score (0-4 normal; 5-9 mild; 10-14 moderate; 15-21 severe): 0 Source: Developed by Drs. Pardeep Chester, Leesa Crain, Vrainder Santoro and colleagues, with an educational madeline from [employer]. KARMEN-7 Assessment Billing KARMEN-7 Assessment Tool: KARMEN-7 Assessment 55180 Physical exam (Primary Care) Vital Signs: Last Vital Signs Pulse 72 01/24/25 13:51 Resp 14 01/24/25 13:51 BP 132/72 01/24/25 13:51 Pulse Ox 95 01/24/25 13:51 Oxygen Delivery Method Room Air 01/24/25 13:51 BMI result Body Mass Index 29.1 Tobacco/Smoking Status: Tobacco use Status Tobacco use date assessed 01/24/25 01/24/25 13:54 Patient Tobacco Use Status Never used Tobacco 01/24/25 13:54 e-Cigarette/Vaping Use Never Used 01/24/25 13:54 PHQ-9: PHQ-9 Score PHQ-9: Total score 0 01/24/25 13:54 Depression Screening Interpretation: Negative Thrive Assessment: Date of Thrive Assessment Date Thrive assessed 01/17/25 01/24/25 13:54 Currently or been in a relationship where the following occur: No concerns reported Results AMB Urinalysis, Automated UA Leukoctes 0 Tony/uL Last Edit by [employer] on 01/24/25 08:07 UA Nitrite Last Edit by [employer] on 01/24/25 08:07 UA Urobilinogen 0.2 mg/dL Last Edit by [employer] on 01/24/25 08:07 UA Protein 0 mg/dL Last Edit by [employer] on 01/24/25 08:07 UA pH 6.0 Last Edit by [employer] on 01/24/25 08:07 UA Blood 0 Arian/uL Last Edit by [employer] on 01/24/25 08:07 UA Specific [place] 1.030 Last Edit by [employer] on 01/24/25 08:07 UA Ketone Last Edit by [employer] on 01/24/25 08:07 UA Bilirubin 0 mg/dL Last Edit by [employer] on 01/24/25 08:07 UA Glucose 0 mg/dL Last Edit by [employer] on 01/24/25 08:07 Coding Level of Care Code Est Pt Level 4 (85715) Diagnoses Primary hypertension I10 Hypertension type: primary hypertension Mixed hyperlipidemia E78.2 Hyperlipidemia type: mixed hyperlipidemia Benign prostatic hyperplasia with lower urinary tract symptoms, symptom details unspecified N40.1 Lower urinary tract symptom presence: symptoms present Lower urinary tract symptom detail: unspecified Additional Codes KARMEN-7 Assessment Billing - KARMEN-7 Assessment Tool: KARMEN-7 Assessment 87918 ([id number]) PHQ-9 - 27278 - PHQ-9 Billing: Yes ([id number]) Assessment & Plan Assessment & Plan (1) Hypertension: Code(s): I10 - Essential (primary) hypertension Category: Medical Qualifiers: Hypertension type: primary hypertension Qualified Code(s): I10 - Essential (primary) hypertension (2) Hyperlipidemia: Code(s): E78.5 - Hyperlipidemia, unspecified Category: Medical Qualifiers: Hyperlipidemia type: mixed hyperlipidemia Qualified Code(s): E78.2 - Mixed hyperlipidemia (3) BPH (benign prostatic hyperplasia): Code(s): N40.0 - Benign prostatic hyperplasia without lower urinary tract symptoms Category: Medical Qualifiers: Lower urinary tract symptom presence: symptoms present Lower urinary tract symptom detail: unspecified Qualified Code(s): N40.1 - Benign prostatic hyperplasia with lower urinary tract symptoms Plan CV: blood pressure well controlled. continues weight loss efforts. Continue follow up with cardiology BPH: Stable on current medication regiment Preventive care UTD Orders: Orders Comprehensive Met. Panel 6 Months E78.2 - Mixed hyperlipidemia, I10 - Essential (primary) hypertension, R07.9 - Chest pain, unspecified, Z13.0 - Encounter for screening for diseases of the blood and blood-forming organs and certain disorders involving the immune mechanism Complete Blood Count Auto Diff 6 Months E78.2 - Mixed hyperlipidemia, I10 - Essential (primary) hypertension, R07.9 - Chest pain, unspecified, Z13.0 - Encounter for screening for diseases of the blood and blood-forming organs and certain disorders involving the immune mechanism Lipid Panel 6 Months E78.2 - Mixed hyperlipidemia, I10 - Essential (primary) hypertension, R07.9 - Chest pain, unspecified, Z13.0 - Encounter for screening for diseases of the blood and blood-forming organs and certain disorders involving the immune mechanism Hemoglobin A1c 6 Months E78.2 - Mixed hyperlipidemia, I10 - Essential (primary) hypertension, R07.9 - Chest pain, unspecified, Z13.0 - Encounter for screening for diseases of the blood and blood-forming organs and certain disorders involving the immune mechanism
[2025-01-24 13:51] VITALS: BP 132/72; PULSE 72; RESP 14; O2SAT 95; BMI 29.1
== END 2025-01-24 14:14 | disposition home or self-care (01) ==
LOC: HO.HMCFM 13:35
PROVIDERS: PCP Internal Medicine; Visit Provider Internal Medicine
DX: I10 Essential (primary) hypertension (principal); E78.2 Mixed hyperlipidemia; N40.1 Benign prostatic hyperplasia with lower urinary tract symptoms

== ENCOUNTER 2025-08-12 08:51 | Outpatient (AMB) | payer MEDICARE, SELFPAY ==
--- OUTSIDE RECORDS SUMMARY | 2025-08-12 08:56 | XMS_ITS | Patient Health Record ---
Author Organization [facility] Address [address] [place] [address] Care Team Providers Care Associate Justice Name Role Phone Nayeli Caro Primary Care [...] Problem Status W/U Status Risk Notes Problem Acquired hallux rigidus (6007873) Hallux rigidus of left foot (M20.22) Active confirmed Problem Acquired hallux rigidus (6155599) Hallux rigidus of right foot (M20.21) Active confirmed Plan Of Treatment Pending Test Test Name Order Date YULISSA w/Reflex if Positive 10/12/2021 DRAIN/INJECT, SMALL JOINT/BURSA 10/12/19 22 Insurance Providers Payer Name Payer Address Payer Phone Subscriber Number Group Number Insured Name Patient Relationship to Insured Coverage Start Date Coverage End Date [facility] and [facility] [address] [place] [phone] [id number] 1 NatalbanyKeith cole Self - patient is the insured [...]
[2025-08-12 09:01] VITALS: BP 132/82; PULSE 74; RESP 12; O2SAT 94; BMI 30.5
--- NOTE | 2025-08-12 09:01 | A.OFFPC_ITS ---
Vital Signs 08/12/25 09:01 Height 5 ft 6 in Weight 189 lb 2 oz BMI 30.5 BP 132/82 Blood Pressure Location Rt brachial Position Sitting Respiration 12 Pulse 74 Pulse Source Pulse Oximeter Pulse Oximetry (%) 94 Oxygen Delivery Method Room Air Intake Visit Reasons: 1/2 hour Intake Note: Follow up Pushcart Peddler Required: No Allergies No Known Allergies Allergy (Verified 08/12/25 09:03) Tobacco use date assessed: 08/12/25 Dental Screening Dental Screen Date: 01/24/25 HPI HPI Comments History of Present Illness Details The patient is a 69 year old male with pmh htn, hld, bph, knee pain, IFG presenting for follow up CV: On losartan hctz 100/12.5, ASA. Blood pressure is well controlled. LBBB. Had ACS rule out in Jul 2024. Following with cardiology, Dr Ramirez. Had coronary CT without evidence blockage. BPH: on terasozin and finasteride MWF. Follows with urology, Dr Soto. Had previous reassuring w/up for hematuria. Fatigue: +EDWARD on cpap MSK: Foot, knee pain. Was seeing [facility]-no longer taking his insurance. Saw [facility] for knee pain, shoulder pain and foot pain. Had colonoscopy 05/2022-repeat 5 year recommended. ROS see HPI PHYSICAL EXAM: GENERAL: Alert and oriented x 3. NAD EYES: EOMI. Anicteric. HENT: Moist mucous membranes. No scleral icterus. No cervical lymphadenopathy. LUNGS: Clear to auscultation bilaterally. CARDIOVASCULAR: Regular rate and rhythm. No murmur. No JVD. ABDOMEN: Soft, non-tender +bs EXTREMITIES: No edema. Non-tender. SKIN: No rashes or lesions. Warm. NEUROLOGIC: No focal neurological deficits. CN II-XII grossly intact PSYCHIATRIC: Cooperative. Appropriate mood and affect [facility] Medical History Serrated polyp of colon Persistent cough Recurrent hernia Pain in left foot Pain in right foot Multiple lipomas Obesity, Class II, BMI 35-39.9 Bilateral shoulder pain Fatigue Acquired hallux rigidus Bilateral knee pain Surgical History History of arthroscopic knee surgery Hx of partial adrenalectomy Hx of colonoscopy Family History Mother Degeneration of cornea of both eyes Father Prostate cancer Maternal Grandfather H/O ETOH abuse Paternal Grandmother Skin cancer Other Substance abuse Social History Housing: House Alcohol intake: current Patient Tobacco Use Status: Never used Tobacco e-Cigarette/Vaping Use: Never Used Second Hand Smoke Exposure: No Substance Use Type: Marijuana service: No Current occupational status: retired Cognitive needs: No Hearing needs: Yes (hearing loss) Vision needs: No Questionnaire Thrive Questionnaire Date Thrive assessed: 01/17/25 I am a: Patient What is your living situation today?: I have a steady place to live Within the past 12 months, did the food you bought not last and you didn't have the money to get more?: Never true Within the past 12 months, did you worry whether your food would run out before you got money to buy more?: Never true Do you have trouble paying for medicines?: No Do you have trouble getting transportation to medical appointments?: No Do you have trouble paying your heating and electricity bill?: No Do you have trouble taking care of your child, family member or friend?: No Do you have trouble with day-to-day activities such as bathing, preparing meals, shopping, managing finances, etc.?: No Are you currently unemployed and looking for a job?: No Are you interested in more education?: No Please select the resources that you would like help with: None Currently or been in a relationship where the following occur: No concerns reported THRIVE Score: 0 KARMEN-7 AMB Questionnaire KARMEN-7 Date KARMEN - 7 assessed: 01/24/25 Source: Developed by Drs. Pardeep Chester, Leesa Crain, Varinder Santoro and colleagues, with an educational madeline from [employer]. Physical exam (Primary Care) Vital Signs: Last Vital Signs Pulse 74 08/12/25 09:01 Resp 12 08/12/25 09:01 BP 132/82 08/12/25 09:01 Pulse Ox 94 08/12/25 09:01 Oxygen Delivery Method Room Air 08/12/25 09:01 BMI result Body Mass Index 30.5 Tobacco/Smoking Status: Tobacco use Status Tobacco use date assessed 08/12/25 08/12/25 09:07 Patient Tobacco Use Status Never used Tobacco 08/12/25 09:07 e-Cigarette/Vaping Use Never Used 08/12/25 09:07 Thrive Assessment: Date of Thrive Assessment Date Thrive assessed 01/17/25 08/12/25 09:07 Currently or been in a relationship where the following occur: No concerns reported Coding Level of Care Code Complex visit Add On G2211 Diagnoses Primary hypertension I10 Hypertension type: primary hypertension Anxiety F41.9 Benign prostatic hyperplasia with lower urinary tract symptoms, symptom details unspecified N40.1 Lower urinary tract symptom presence: symptoms present Lower urinary tract symptom detail: unspecified Assessment & Plan Assessment & Plan (1) Hypertension: Code(s): I10 - Essential (primary) hypertension Category: Medical Qualifiers: Hypertension type: primary hypertension Qualified Code(s): I10 - Essential (primary) hypertension (2) Anxiety: Code(s): F41.9 - Anxiety disorder, unspecified Category: Medical (3) BPH (benign prostatic hyperplasia): Code(s): N40.0 - Benign prostatic hyperplasia without lower urinary tract symptoms Category: Medical Qualifiers: Lower urinary tract symptom presence: symptoms present Lower urinary tract symptom detail: unspecified Qualified Code(s): N40.1 - Benign prostatic hyperplasia with lower urinary tract symptoms Plan 69 year old for follow up Blood pressure remains well controlled on current medications Insomnia, anxiety-lorazepam for sleep BPH continue medications. Follow up us ordered for January Medications: New lorazepam (Ativan) 1 mg PO BEDTIME PRN 90 tabs 3RF anxiety F41.9 - Anxiety disorder, unspecified lorazepam (Ativan) 1 mg PO BEDTIME PRN 90 tabs 3RF anxiety F41.9 - Anxiety disorder, unspecified Refilled terazosin 10 mg PO DAILY 90 caps 3RF 90 days finasteride 5 mg PO DAILY 90 tabs 3RF
== END 2025-08-12 09:42 | disposition home or self-care (01) ==
LOC: HO.HMCFM 08:52
PROVIDERS: PCP Internal Medicine; Visit Provider Internal Medicine
DX: I10 Essential (primary) hypertension (principal); F41.9 Anxiety disorder, unspecified; N40.1 Benign prostatic hyperplasia with lower urinary tract symptoms

== ENCOUNTER 2025-08-12 08:51 | Outpatient (REF) | payer MEDICARE, SELFPAY ==
[2025-08-12 11:28] LABS: MANUAL DIFF FLAG NO
[2025-08-12 11:43] LABS: Hematocrit 46.5 % (42.0-52.0); Hemoglobin 16.2 g/dl (14.0-18.0); Imm Gran Abs Auto 0.02 X10*3/uL (0.00-0.03); Imm Gran Pct Auto 0.4 % (0.0-0.4); Lymphocytes Absolute Auto 1.2 X10*3/uL (1.2-4.9); Mean Corpuscular HGB Conc 34.8 g/dl (31.0-36.0); Mean Corpuscular Hemoglobin 32.4 pg (27.0-33.0); Mean Corpuscular Volume 93.0 fL (80.0-98.0); NRBC Abs Auto 0.000 X10*3/uL (0.0-0.012); NRBC Pct Auto 0.0 /100WBC (0.0-0.2); Platelet Count 180 X10*3/uL (160-400); Red Blood Count 5.00 X10*6/uL (4.60-5.80); White Blood Count 5.7 X10*3/uL (4.8-10.8)
[2025-08-12 12:09] LABS: Alanine Aminotransferase 19 U/L (0-40); Albumin Level 4.5 g/dL (3.5-5.0); Alkaline Phosphatase 75 U/L (39-117); Anion Gap 10 (12-20); Aspartate Amino Transferase 29 U/L (5-37); Blood Urea Nitrogen 22 mg/dL (9-16); Calcium 9.2 mg/dL (8.4-10.2); Carbon Dioxide 27 mmol/L (22-29); Chloride 106 mmol/L (96-108); Cholesterol 216 mg/dL (<200); Estimated Glomerular Filt Rate > 60; HDL Cholesterol 53 mg/dL (>40); Potassium 4.1 mmol/L (3.3-5.1); Sodium 139 mmol/L (135-145); Total Protein 7.3 g/dL (6.5-8.0); Triglycerides 116 mg/dL (<150)
== END 2025-08-12 08:52 | disposition home or self-care (01) ==
LOC: HO.WFDLDS 08:51
PROVIDERS: PCP Internal Medicine; Visit Provider Internal Medicine
DX: I10 Essential (primary) hypertension (principal); E78.2 Mixed hyperlipidemia; R07.9 Chest pain, unspecified; F41.9 Anxiety disorder, unspecified; N40.1 Benign prostatic hyperplasia with lower urinary tract symptoms; Z13.0 Encounter for screening for diseases of the blood and blood-forming organs and certain disorders involving the immune mechanism; Z13.1 Encounter for screening for diabetes mellitus
CPT/HCPCS: 36415; 80053; 80061; 83036; 85025; 99212